=== PATIENT | male | born 1990 | race Hispanic/Latino ===

== ENCOUNTER 2024-10-03 02:10 | Emergency (ER) | payer SELFPAY ==
[2024-10-03 02:18] VITALS: BP 126/88
[2024-10-03] MEDS: MOTRIN 400 MG PO (03:01)
[2024-10-03] MEDS: IMITREX 6 MG SC (03:02)
[2024-10-03 03:11] VITALS: BP 148/93
[2024-10-03 03:43] VITALS: BP 125/68
--- NOTE | 2024-10-03 03:50 | ED.GENMED ---
History of Present Illness
General
Chief Complaint: Headache
Source: patient
Exam Limitations: none
Time Seen by Provider: 10/03/24 02:43
Nursing documentation reviewed up to this point in time: agreed with
History of Present Illness
History of Present Illness:
Patient presents to ED secondary to intermittent headache over the past 2 weeks, partially relieved with Excedrin Migraine. Patient reports intermittent vomiting episodes over the past 2 days. Denies fever. Denies blurred vision. Denies
dizziness. Denies loss of sensation or weakness. Denies difficulty with ambulation. Patient states that he has had seasonal headache since 2016, around same time, right before the winter. There is family history of migraine headache, with his
mother. Denies recent travel. Denies sick contact. Denies recent change in medications or diet.
Past History
Past History
ED Past Medical History: Other (Migraine headaches); Negative HTN
ED Past Surgical History: None
Social History
Tobacco: Smoker
Alcohol: None
Personal: Single
Living: with family
Employment: Employed
Family History
Family History: Other (Mother with migraines)
Review of Systems
Review of Systems
Allergies reviewed?: Yes
All Other Systems: ROS reviewed and negative except as documented in HPI and ROS
Constitutional: Reports no symptoms; Denies fever or chills
EENT: Reports no symptoms
Respiratory: Reports no symptoms
Cardiac: Reports no symptoms
ABD/GI: Reports nausea and vomiting; Denies abdominal pain
Musculoskeletal: Reports no symptoms
Skin: Reports no symptoms
Neurological: Reports headache; Denies dizzy, weakness or numbness
Phy Exam
Physical Exam
Physical Exam:
Physical Exam
General: mild painful distress, not acutely ill. afebrile
Head: nc/at. eomi
Neck: supple. no meningeal signs.
Heart: s1/s2 regular rate and rhythm, no murmur. equal radial pulses.
Lungs: no acute respiratory distress. clear bilaterally
Abdomen: normal bowel sounds. not tender.
Neuro: alert and oriented. no focal neurological deficits
Skin: no rash
Psychiatric: well kept. interactive and cooperative
Extremities: no edema. no calf tenderness.
Course
Orders/Labs/Results
Orders:
Orders
10/03/24 02:48
CT Head W/o Iv Contrast Urgent
Comment:
Reason For Exam: headache
Sumatriptan Succinate [Imitrex] 6 mg SC NOW STA
10/03/24 02:49
Ibuprofen [Motrin] 400 mg PO NOW STA
Vital Signs
Initial and Last Documented VS:
Initial Vital Signs
Temp Pulse Resp BP Pulse Ox
98.6 F 66 16 126/88 97
10/03/24 02:18 10/03/24 02:18 10/03/24 02:18 10/03/24 02:18 10/03/24 02:18
Last Documented Vital Signs
Temp Pulse Resp BP Pulse Ox
98.6 F 63 15 110/52 98
10/03/24 02:18 10/03/24 03:12 10/03/24 03:12 10/03/24 05:00 10/03/24 05:00
MDM/Problems Addressed
MDM/Problems Addressed:
CT head: No acute findings.
Patient reports complete resolution of his symptoms after treatment. Patient otherwise is afebrile, hemodynamically stable, neurologically intact, without any acute distress, at time of discharge. Advised use of Tylenol/Motrin with any recurrent
headache, as well as PCP follow-up as an outpatient, with consideration to obtain neurology consultation as outpatient.
*Critical Care Note
Total Time (30-74mins, 75-104mins- exclusive of procedures): Not Applicable
ED Attending Note
-
Portions of this chart may have been created with voice recognition software.� Occasional wrong word or��sound alike� substitutions may have occurred due to the inherent limitations of voice recognition software.
Discharge Plan
Departure
Patient Disposition: Home (Routine Discharge)
Date of Disposition: 10/03/24
Time of Disposition: 05:36
Patient with high blood pressure during this ER visit?: Yes
Discharge Problem:
Headache
Instructions: Headache, Adult (DC)
Prescriptions:
No Action
No Current Medications
0
Referrals:
NONE,* [Family Provider] -
Activity Restrictions/Additional Instructions:
As discussed, please follow-up with your primary care physician with any further concerns, including potential referral to neurology for an outpatient consultation, with recurrent headache.
Interventions
Interventions:
*Risk Screen - Suicide Last Done: 10/03/24 02:13
*General Assessment Last Done: 10/03/24 03:00
*Neglect/Abuse Screening Last Done: 10/03/24 02:13
ED- Fall Risk Assessment Last Done: 10/03/24 03:00
*ED COVID-19 Vaccine History Last Done: 10/03/24 03:00
ED- Neurological Assessment Last Done: 10/03/24 03:00
Discharge Date and Time
Print Language: SWEDISH
[2024-10-03 04:00] VITALS: BP 112/61
[2024-10-03 05:00] VITALS: BP 110/52
== END 2024-10-03 05:45 | disposition home or self-care (01) ==
LOC: EMR 02:10
PROVIDERS: EMERGENCY PHYSICIAN Emergency Medicine
DX: R51.9 Headache, unspecified (principal); F17.200 Nicotine dependence, unspecified, uncomplicated
CPT/HCPCS: 96372; 99284; 70450

== ENCOUNTER 2024-10-03 14:45 | Emergency (ER) | payer SELFPAY ==
[2024-10-03 14:47] VITALS: BP 130/94
--- NOTE | 2024-10-03 15:23 | ED.GENMED ---
History of Present Illness
General
Chief Complaint: Headache
Source: patient
Exam Limitations: none
Time Seen by Provider: 10/03/24 15:22
Nursing documentation reviewed up to this point in time: agreed with
Past History
Past History
ED Past Medical History: Other (Migraine headaches); Negative HTN
ED Past Surgical History: None
Social History
Tobacco: Smoker
Alcohol: None
Personal: Single
Living: with family
Employment: Employed
Family History
Family History: Other (Mother with migraines)
Review of Systems
Review of Systems
All Other Systems: ROS reviewed and negative except as documented in HPI and ROS
Course
Vital Signs
Initial and Last Documented VS:
Initial Vital Signs
Temp Pulse Resp BP Pulse Ox
98.1 F 77 16 130/94 100
10/03/24 14:47 10/03/24 14:47 10/03/24 14:47 10/03/24 14:47 10/03/24 14:47
Last Documented Vital Signs
Temp Pulse Resp BP Pulse Ox
98.1 F 77 16 130/94 100
10/03/24 14:47 10/03/24 14:47 10/03/24 14:47 10/03/24 14:47 10/03/24 14:47
ED Attending Note
-
Portions of this chart may have been created with voice recognition software.� Occasional wrong word or��sound alike� substitutions may have occurred due to the inherent limitations of voice recognition software.
Discharge Plan
Departure
Prescriptions:
No Action
No Current Medications
0
Interventions
Interventions:
*Risk Screen - Suicide Last Done: 10/03/24 14:47
*Neglect/Abuse Screening Last Done: 10/03/24 14:47
*ED COVID-19 Vaccine History Last Done: 10/03/24 14:47
Discharge Date and Time
Print Language: [place]
--- NOTE | 2024-10-03 16:09 | ED.GENMED ---
History of Present Illness
<Rima Armstrong MD, Resident - Last Filed: 10/03/24 16:27>
General
Chief Complaint: Headache
Time Seen by Provider: 10/03/24 15:22
History of Present Illness
History of Present Illness:
33 y/o male with a prior history of migraine headaches presenting to the ED with headache. Patient was discharged this morning from ED after pain relief. Notes headache started at home after taking a shower and eating breakfast. Has had one
episode of vomiting and is feeling nauseous. Pt notes headache is unilateral, starts from behind the right eye and extends into the occipital region. Headache is similar to his prior episodes of migraine headaches. Notes headaches tend to be
seasonal and usually occur before winter. Headache is aggravated with loud noise and bright light. Denies fever, visual changes, sensational loss, weakness. No recent trauma. Pt took excedrin today which did not help. Does not take any other
medications for his migraine.
Past History
<Rima Armstrong MD, Resident - Last Filed: 10/03/24 16:27>
Past History
ED Past Medical History: Other (Migraine headaches); Negative HTN
ED Past Surgical History: None
Social History
Tobacco: Smoker
Alcohol: None
Personal: Single
Living: with family
Employment: Employed
Family History
Family History: Other (Mother with migraines)
Review of Systems
<Rima Armstrong MD, Resident - Last Filed: 10/03/24 16:27>
Review of Systems
Constitutional: Reports no symptoms
EENT: Reports no symptoms
Respiratory: Reports no symptoms
Cardiac: Reports no symptoms
ABD/GI: Reports nausea
: Reports no symptoms
Musculoskeletal: Reports no symptoms
Skin: Reports no symptoms
Neurological: Reports headache
Endocrine: Reports no symptoms
Hematologic/Lymphatic: Reports no symptoms
Phy Exam
<Rima Armstrong MD, Resident - Last Filed: 10/03/24 16:27>
Physical Exam
Physical Exam:
GENERAL: Alert, in no apparent distress
EYE: pupils equal and reactive
NECK: Supple, no significant adenopathy, no carotid bruit
ENT: o/p clr, mmm.
CARDIAC: Regular rate and rhythm .
LUNGS: Clear breath sounds bilaterally, no acute respiratory distress, no wheezes/rales/rhonchi
ABDOMEN: Soft, without focal tenderness, no r/g, no cvat
NEUROLOGICAL: Alert and oriented, no focal neuro deficits, muscle strength 5/5, [id number] test: negative
SKIN: Warm and dry, skin intact.
MUSCULOSKELETAL: No edema, well perfused.
PSYCH: Normal and appropriate interaction.
Course
<Rima Armstrong MD, Resident - Last Filed: 10/03/24 16:27>
Orders/Labs/Results
Orders:
Orders
10/03/24 16:05
IV Insert/Care/Rem.- Treatment PRN
0.9% Sodium Chloride 500 ml [Nss] 500 ml IV BOLUS
Diphenhydramine [Benadryl] 25 mg IV NOW STA
Ketorolac [Toradol] 15 mg IV NOW STA
Metoclopramide [Reglan] 10 mg IV NOW STA
Vital Signs
Initial and Last Documented VS:
Initial Vital Signs
Temp Pulse Resp BP Pulse Ox
98.1 F 77 16 130/94 100
10/03/24 14:47 10/03/24 14:47 10/03/24 14:47 10/03/24 14:47 10/03/24 14:47
Last Documented Vital Signs
Temp Pulse Resp BP Pulse Ox
98.1 F 72 14 125/65 100
10/03/24 14:47 10/03/24 17:52 10/03/24 17:52 10/03/24 17:52 10/03/24 17:52
<Sonny Agarwal MD - Last Filed: 10/03/24 19:21>
Orders/Labs/Results
Orders:
Orders
10/03/24 16:05
IV Insert/Care/Rem.- Treatment PRN
0.9% Sodium Chloride 500 ml [Nss] 500 ml IV BOLUS
Diphenhydramine [Benadryl] 25 mg IV NOW STA
Ketorolac [Toradol] 15 mg IV NOW STA
Metoclopramide [Reglan] 10 mg IV NOW STA
Vital Signs
Initial and Last Documented VS:
Initial Vital Signs
Temp Pulse Resp BP Pulse Ox
98.1 F 77 16 130/94 100
10/03/24 14:47 10/03/24 14:47 10/03/24 14:47 10/03/24 14:47 10/03/24 14:47
Last Documented Vital Signs
Temp Pulse Resp BP Pulse Ox
98.1 F 72 14 125/65 100
10/03/24 14:47 10/03/24 17:52 10/03/24 17:52 10/03/24 17:52 10/03/24 17:52
<Rima Armstrong MD, Resident - Last Filed: 10/03/24 16:27>
MDM/Problems Addressed
Differential Diagnosis Includes:
Migraine headache
MDM/Problems Addressed:
#Headache
- Given that headache is similar to his prior episodes of migraine headache, normal head CT and his benign exam findings, most likely migraine headache
- Supportive management with IVF, benadryl, reglan, toradol
- Continue to monitor clinically
Chronic conditions affecting care:
Migraine headache
<Rima Armstrong MD, Resident - Last Filed: 10/03/24 16:27>
*Critical Care Note
Total Time (30-74mins, 75-104mins- exclusive of procedures): Not Applicable
<Sonny Agarwal MD - Last Filed: 10/03/24 19:21>
Update Note
Update Note:
1830... Patient doing well. Comfortable sleeping. Does not feel groggy. Will observe another half hour to an hour. If remains stable will discharge to follow-up
1915... Patient feels well. No distress. Does not feel groggy and feels safe to drive. Discharged to follow-up
ED Attending Note
<Riam Armstrong MD, Resident - Last Filed: 10/03/24 16:27>
-
Portions of this chart may have been created with voice recognition software.� Occasional wrong word or��sound alike� substitutions may have occurred due to the inherent limitations of voice recognition software.
<Sonny Agarwal MD - Last Filed: 10/03/24 19:21>
ED Attending Note
Patient seen and examined by attending physician: Yes
I performed a history and physical exam of patient and discussed management with resident, I reviewed resident's note and agree with documented findings and plan of care.: Yes
ED Attending Note:
33-year-old male returns with right sided retrobulbar and right-sided headache associated with nausea and photophobia. No neurologic symptoms. No numbness tingling or weakness. No fever. Headache had resolved this morning but recurred again
after breakfast. This is not an unusual chronological path for his migraines. Feels like a migraine to the patient.
Patient's exam is unremarkable. He is awake alert oriented. Speech is normal. Cranial nerves II through XII intact. Eye confrontation normal. Neck is supple. No carotid bruit. No distress. Nonfocal. Warm and dry.
Patient's symptoms all consistent with migraine. History of migraine. Nothing atypical about his presentation. He did have a negative CT earlier today. Very very low suspicion for subarachnoid hemorrhage. Treat symptomatically to follow-up.
Discharge Plan
Departure
Patient Disposition: Home (Routine Discharge)
Date of Disposition: 10/03/24
Time of Disposition: 19:18
Patient with high blood pressure during this ER visit?: Yes
Discharge Problem:
Refractory migraine headache
Instructions: Migraines (DC), Headache, Adult (DC), BLOOD PRESSURE
Prescriptions:
New
prochlorperazine maleate [Compazine] 10 mg tablet
10 mg PO Q8H PRN (Reason: nausea and vomiting) 1 Days Qty: 10 0RF
Referrals:
Ambrocio Sadler MD [Active] - Next open appointment
NONE,* [Family Provider] -
Activity Restrictions/Additional Instructions:
I sent a prescription in for the Compazine for the headaches. If you do use this take it with Benadryl
I also gave you the name of a neurologist you can call for follow-up
Of course return here with any concerning persistent headache, neurologic symptoms or any other issues.
Interventions
Interventions:
*Risk Screen - Suicide Last Done: 10/03/24 14:47
*General Assessment Last Done: 10/03/24 15:56
*Neglect/Abuse Screening Last Done: 10/03/24 14:47
ED- Fall Risk Assessment Last Done: 10/03/24 15:56
*ED COVID-19 Vaccine History Last Done: 10/03/24 14:47
ED- Neurological Assessment Last Done: 10/03/24 15:56
Discharge Date and Time
Print Language: CITIZEN OF [place]
[2024-10-03] MEDS: BENADRYL 25 MG IV (16:17)
[2024-10-03] MEDS: TORADOL 15 MG IV (16:17)
[2024-10-03] MEDS: NSS 500 IV (16:17)
[2024-10-03] MEDS: REGLAN 10 MG IV (16:17)
[2024-10-03 17:52] VITALS: BP 125/65
[2024-10-03 19:46] VITALS: BP 120/60
== END 2024-10-03 19:47 | disposition home or self-care (01) ==
LOC: EMR 14:45
PROVIDERS: EMERGENCY PHYSICIAN Emergency Medicine
DX: G43.809 Other migraine, not intractable, without status migrainosus (principal); F17.200 Nicotine dependence, unspecified, uncomplicated
CPT/HCPCS: 96374; 96375; 96361; 99284